=== PATIENT | female | born 1990 | race Two or more races ===

== ENCOUNTER 2019-09-06 02:21 | Outpatient (CLI) | payer OTHER | END 2019-09-06 02:22 | disposition critical access hospital (66) | LOC: EMS 02:21 | PROVIDERS: ATTEND Surgery | DX: S09.90XA Unspecified injury of head, initial encounter (principal); T20.06XA Burn of unspecified degree of forehead and cheek, initial encounter; S81.852A Open bite, left lower leg, initial encounter; T71.193A Asphyxiation due to mechanical threat to breathing due to other causes, assault, initial encounter; Y04.1XXA Assault by human bite, initial encounter; X97.XXXA Assault by smoke, fire and flames, initial encounter; Y04.2XXA Assault by strike against or bumped into by another person, initial encounter; Y92.810 Car as the place of occurrence of the external cause | CPT/HCPCS: A0425; A0429 ==

== ENCOUNTER 2019-09-06 02:38 | Emergency (ER) | payer OTHER ==
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
[2019-09-06 04:03] LABS: HCG UR QUAL NEGATIVE
[2019-09-06] MEDS ORDERED: IBUPROFEN 600 MG TABLET PO STA (04:17)
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
[2019-09-06 06:22] VITALS: BP 127/86
== END 2019-09-06 06:38 | disposition home or self-care (01) ==
LOC: ED 02:38 → EEVIPCON 02:38 → ED 06:38
DX: S02.2XXA Fracture of nasal bones, initial encounter for closed fracture (principal); T20.16XA Burn of first degree of forehead and cheek, initial encounter; S10.91XA Abrasion of unspecified part of neck, initial encounter; S80.812A Abrasion, left lower leg, initial encounter; S80.811A Abrasion, right lower leg, initial encounter; S60.311A Abrasion of right thumb, initial encounter; S81.052A Open bite, left knee, initial encounter; Y04.1XXA Assault by human bite, initial encounter; Y93.89 Activity, other specified; Y92.009 Unspecified place in unspecified non-institutional (private) residence as the place of occurrence of the external cause; F17.200 Nicotine dependence, unspecified, uncomplicated
CPT/HCPCS: 70450; 70486; 73140; 81025; 99284; A9270